=== PATIENT | male | born 1985 | race Caucasian/White ===

== ENCOUNTER → 2020-10-06 | Outpatient (CLI) | payer OTHER ==
[~2020-10-06] MED LIST: HYDR-2761 PO
== END ==
LOC: LAB 09:49
PROVIDERS: ATTEND Orthopaedic Surgery
DX: Z01.812 Encounter for preprocedural laboratory examination (principal); Z20.822 Contact with and (suspected) exposure to COVID-19; M19.011 Primary osteoarthritis, right shoulder
CPT/HCPCS: U0003; U0005

== ENCOUNTER 2020-10-09 09:28 | Day surgery (SDC) | payer OTHER ==
[~2020-10-09] VITALS: Ht 165.1 cm; Wt 70.3 kg
[~2020-10-09 09:28] MED LIST changes: +HYDROmorphone 2 MG/ML VIAL IVP PRN; +IV RINGERS,LACTATED 1000ML 1,000 ML IV SCH; +MORPHINE SULFATE 2 MG/ML VIAL. IVP PRN; +PROCHLORPERAZINE 10 MG/2 ML VIAL. IVP PRN; +fentaNYL PF VIAL 100 MCG/2 ML VIAL IVP PRN
[2020-10-09] MEDS ORDERED: MIDAZOLAM HCL/PF 2 MG/2 ML VIAL. ONE (10:48)
[2020-10-09] MEDS ORDERED: fentaNYL PF VIAL 100 MCG/2 ML VIAL ONE ×2 (10:48→13:20)
[2020-10-09] MEDS ORDERED: GLYCOPYRROLATE 1 MG/5 ML VIAL. ONE (10:49)
[2020-10-09] MEDS ORDERED: NEOSTIGMINE METHYLSULFATE 5 MG/5 ML SYRINGE. ONE (10:49)
[2020-10-09] MEDS ORDERED: ROCURONIUM 50 MG/5 ML VIAL. ONE (10:49)
[2020-10-09] MEDS ORDERED: PROPOFOL 10 MG/ML (20ML) VIAL. IV ONE ×2 (10:50→12:29)
[2020-10-09] MEDS ORDERED: LIDOCAINE 2% PF 5 ML VIAL. ONE (10:50)
[2020-10-09] MEDS ORDERED: BUPIVACAINE-EPI 0.25% 30 ML VIAL KIT. ONE (10:55)
[2020-10-09] MEDS ORDERED: BUPIVACAINE MPF 0.25% 30 ML VIAL. ONE (10:55)
--- NOTE | 2020-10-09 12:22 | PDOC4 ---
Operative Note Operative Note PREOPERATIVE DIAGNOSIS: Rupture of right Achilles tendon, initial encounter - S86.011A POSTOPERATIVE DIAGNOSIS: Rupture of right Achilles tendon, initial encounter - S86.011A PROCEDURE PERFORMED: Repair, primary, open, ruptured Achilles tendon, CPT 23789. SURGEON: Jennifer Hdz M.D. SUSTAINABILITY DIRECTOR: Trever MAZARIEGOS ANESTHESIA: General. ESTIMATED BLOOD LOSS: 25 mL TOURNIQUET: 13 minutes at 300 mm Hg COMPLICATIONS: None. SPECIMENS: None. DRAINS: None. INDICATIONS FOR PROCEDURE: Terrence is a 35-year old with a right Achilles tendon rupture. Surgical repair has a lower risk of re-rupture but has a higher risk of skin healing and wound healing complications, infections or other potential surgical complications. The risks of complications is low for a healthy individual, and we discussed the potential risks of infection, bleeding, blood clots, scarring, re-rupture, stiffness, or other potential surgical or anesthetic complications. All of his questions about surgery were answered and he desires to proceed. A written consent was obtained. DESCRIPTION OF PROCEDURE: The patient was identified in the preoperative holding area. The correct right lower extremity was marked by me. The patient was taken to the operating room where a general anesthetic was used. Preoperative ant ibiotics were given intravenously. A time-out procedure was performed. The patient was positioned prone on the operating table with the bony prominences well-padded and with eyes protected. A tourniquet was placed on the operative right thigh. The limb was prepared with ChloraPrep solution from the tourniquet to the toes and sterile drapes were applied. Sterile gloves were placed over the toes and heel to further drape out the foot. An Esmarch bandage was used to exsanguinate the limb and the tourniquet was inflated to 300 mmHg. A longitudinal incision was made slightly medial to the midline of the Achilles, centered over the area of the palpable defect. Sharp dissection was used and Bovie electrocautery was used only as needed for hemostasis. The peritenon was divided and retracted. A palpable defect was noted with distorted mop end fibers from the acute rupture, and a small hematoma, about 5 cm proximal to the calcaneus insertion, with better tendon quality distally than proximally. The tendon architecture appears acutely distorted, but there could be an element of chronic degeneration. Circumferential dissection was performed around the proximal and distal tendon stumps. I did not removed any tendon fibers at this time. After preparation and cleansing with saline of the tendon ends, the foot was plantarflexed and the repair commenced. I used #2 FiberWire suture, and a Oxford suture pattern while my graduate teaching assistant maintained the tendon reduction by plantarflexing the foot. The needle entered the distal end of the lateral portion of the tendon where I placed running locking sutures laterally and then medially, then crossed the rupture bringing the tendon ends together and continuing with running locking passes medially and then laterally. The suture ends were now tied with the secure reapproximation of the tendon fibers while my graduate teaching assistant maintained the tendon reduction. A #2-0 PDS was used in a running fashion circumferentially around the tendon for further yarsani of the tendon architecture. A few unsecured degenerative fibers were now excised. A secure repair was obtained and the tendon feels smooth to palpation and intact. The tourniquet was released. Bovie electrocautery was used as needed for hemostasis. Thorough saline irrigation was used and the outer gloves were changed by the operating staff. Next, 30 mL of 0.25% bupivacaine with epinephrine was injected at the skin edges for additional hemostasis and pain relief. The paratenon was recreated with #2-0 Vicryl suture. My graduate teaching assistant repaired the subcutaneous tissues with #2-0 Vicryl inverted interrupted sutures. Finally, the skin was reapproximated with 3-0 Prolene horizontal mattress and simple sutures by my graduate teaching assistant. Xeroform and sterile dressing were applied. The leg was splinted in gravity dorsiflexion with a bulky sterile dressing under the splint. Needle and sponge counts were correct. There were no apparent compli cations. JENNIFER HDZ MD Oct 09, 2020 12:22
[2020-10-09] MEDS ORDERED: SEVOFLURANE 61 TO 120 MINUTES. IH ONE (12:29)
[2020-10-09 13:51] VITALS: BP 163/86
== END 2020-10-09 14:21 | disposition home or self-care (01) ==
LOC: SURG 09:28
PROVIDERS: ATTEND Orthopaedic Surgery
DX: S86.011A Strain of right Achilles tendon, initial encounter (principal); I10 Essential (primary) hypertension; E78.00 Pure hypercholesterolemia, unspecified; F41.9 Anxiety disorder, unspecified; M19.90 Unspecified osteoarthritis, unspecified site; J45.909 Unspecified asthma, uncomplicated; Z72.89 Other problems related to lifestyle; Z88.2 Allergy status to sulfonamides; Z88.8 Allergy status to other drugs, medicaments and biological substances; Z79.899 Other long term (current) drug therapy; X58.XXXA Exposure to other specified factors, initial encounter; Y93.89 Activity, other specified; Y92.89 Other specified places as the place of occurrence of the external cause; Y99.8 Other external cause status
CPT/HCPCS: 27650; A4930; A6402; A6449; A6450; J0690; J0780; J2250; J2704; J2710; J3010; J3490